=== PATIENT | female | born 1975 | race Two or more races ===

== ENCOUNTER 2020-07-03 16:15 | Emergency (ER) | payer SELFPAY ==
[~2020-07-03] VITALS: Ht 160 cm; Wt 99.8 kg
[2020-07-03] MEDS ORDERED: methylPREDNISolone SOD SUCC 125 MG/2 ML VL IM ONE (19:30)
[2020-07-03] MEDS ORDERED: cloNIDine HCL 0.1 MG TAB PO ONE (19:30)
[2020-07-03] MEDS ORDERED: cefTRIAXone SOD 1,000 MG VL IM ONE (19:30)
[2020-07-03 20:24] VITALS: BP 195/108
== END 2020-07-03 22:53 | disposition left against medical advice (07) ==
LOC: ER 16:15
DX: J02.9 Acute pharyngitis, unspecified (principal); Z20.828 Contact with and (suspected) exposure to other viral communicable diseases
CPT/HCPCS: 96372; 99284; J0696; J2930